=== PATIENT | female | born 1970 | race Hispanic/Latino ===

== ENCOUNTER 2022-02-20 02:32 | Emergency (ER) | payer BC ==
[~2022-02-20] VITALS: Ht 172.7 cm; Wt 75.0 kg
[~2022-02-20 02:32] MED LIST: CEPHALEXIN500 MG PO; FIORICET PO; FLONASE NASAL50 MCG; FLUARIX QUADRIV1 INJ IM; LORTAB 5/3255 MG PO; MULT VITAMI1 PO
[2022-02-20] MEDS ORDERED: ULTRAM50 MG PO (02:53)
[2022-02-20] MEDS ORDERED: CEPHALEXIN500 MG PO (02:53)
[2022-02-20 02:59] VITALS: BP 106/45
== END 2022-02-20 03:05 | disposition home or self-care (01) | DRG 603 ==
LOC: ED 02:32
DX: L03.032 Cellulitis of left toe (principal)

== ENCOUNTER 2023-05-21 05:26 | Emergency (ER) | payer BC ==
[~2023-05-21] VITALS: Ht 172.7 cm; Wt 78.0 kg
[~2023-05-21 05:26] MED LIST changes: +ULTRAM50 MG PO
[2023-05-21 05:35] VITALS: BP 109/54
[2023-05-21] MEDS ORDERED: DiphenhydrAMINE HCL 50 MG/ML SDV IV ONE (05:55)
[2023-05-21] MEDS ORDERED: DEXAMETHASONE SOD. PHOSPHATE 10 MG/ML VIAL IV ONE (05:55)
[2023-05-21] MEDS ORDERED: METOCLOPRAMIDE HCL 10 MG/2 ML SDV IV ONE (05:55)
[2023-05-21 06:27] LABS: BASO% 0.5 % (0-3); EOS% 3.9 % (0-8); HEMATOCRIT 40.5 % (37.0-47.0); HEMOGLOBIN 13.2 g/dl (12.0-16.0); IMMATURE GRANULOCYTES 0.1 % (0.0-5.0); LYMPH% 39.9 % (15-41); MEAN CELL VOLUME 92.3 fL CALC (80.0-100.0); MEAN CORPUSCULAR HGB 30.1 pG CALC (26.0-32.0); MEAN CORPUSCULAR HGB CONC 32.6 g/dL CAL (32.0-36.0); MONO% 6.7 % (2-13); NEUT# 3.66 thou/uL (2.00-7.15); NEUT% 48.9 % (42-76); RED BLOOD COUNT 4.39 mill/uL (4.20-5.60); RED CELL DISTRI WIDTH 12.8 % (11.5-15.5)
[2023-05-21 06:44] LABS: ALBUMIN 4.4 g/dL (3.2-5.0); ALKALINE PHOSPHATASE 75 u/l (38-126); ANION GAP 11 (6-22 (CALC)); BILIRUBIN, TOTAL 0.4 mg/dL (0.02-1.3); BUN 21 mg/dL (7-17); BUN/CREATININE RATIO 28 (12-20 (CALC)); CARBON DIOXIDE 24 mmol/l (22-30); CHLORIDE 111 mmol/l (95-108); CREATININE 0.8 mg/dL (0.5-1.0); GFR FOR AFR.AMER. > 60 ML/MIN (>=60 (CALC)); GFR OTHER RACES > 60 ML/MIN (>=60 (CALC)); POTASSIUM 4.1 mmol/l (3.5-5.1); SGOT/AST 28 u/l (14-36); SODIUM 142 mmol/l (137-146); TOTAL PROTEIN 7.3 g/dL (6.3-8.2)
[2023-05-21 07:24] VITALS: BP 104/55
[2023-05-21 07:31] VITALS: BP 110/52
[2023-05-21 08:00] VITALS: BP 101/55
[2023-05-21] MEDS ORDERED: REGLAN10 MG PO (08:25)
[2023-05-21] MEDS ORDERED: IBUPROFEN600 MG PO (08:25)
[2023-05-21 08:30] VITALS: BP 94/54
== END 2023-05-21 08:37 | disposition home or self-care (01) | DRG 103 ==
LOC: ED 05:26
PROVIDERS: Emergency Medicine
DX: G43.909 Migraine, unspecified, not intractable, without status migrainosus (principal)